=== PATIENT | female | born 1995 | race Caucasian/White ===

== ENCOUNTER → 2021-11-17 | Outpatient (CLI) | payer BC ==
[2021-11-17 12:29] LABS: HEMOGLOBIN 13.1 g/dL (12.0-16.0)
[2021-11-17 12:40] LABS: INR 0.85; PARTIAL THROMBOPLASTIN TIME 30.1 seconds (23.8-35.5); PROTHROMBIN TIME 12.4 seconds (11.9-14.5)
[2021-11-17 12:42] LABS: CREATININE, SERUM 0.64 mg/dL (0.57-1.11)
[2021-11-17 15:45] LABS: APPEARANCE,CSF CLEAR (CLEAR); COLOR,CSF COLORLESS (COLORLESS); TUBE NUMBER 3; WHITE BLOOD CELL,CSF 1 cells/uL (0-5)
== END ==
LOC: DX 11:20
PROVIDERS: ATTEND Optometrist
DX: H52.11 Myopia, right eye (principal)
CPT/HCPCS: 36415; 62328; 81025; 82565; 82945; 84157; 84520; 85014; 85049; 85610; 85730; 87070; 87205; 89051